=== PATIENT | male | born 1995 | race Caucasian/White ===

== ENCOUNTER 2020-02-05 14:44 | Observation (INO) | payer OTHER ==
[2020-02-05] MEDS ORDERED: SODIUM CHLORIDE 0.9% 500 ML 500 ML IV STA (15:15)
[2020-02-05] MEDS ORDERED: MORPHINE SULFATE 4 MG/ML SYRINGE IV STA (15:15)
--- NOTE | 2020-02-05 15:20 | ED ---
General Adult HPI - General Chief complaint: Abdominal Pain Stated complaint: Back Pain Time Seen by Provider: 02/05/20 14:51 Source: patient, RN notes reviewed, old records reviewed Mode of arrival: wheelchair Limitations: no limitations - History of Present Illness Initial comments: 24-year-old male patient presents ED chief complaint right lower quadrant abdominal pain. Patient reports that began this morning. Patient reports that he has had 2 episodes of nausea and vomiting. Small amount of diarrhea. Denies any fevers. Patient does report that he is having some discomfort in his bilateral paralumbar regions as well. Denies any weakness paresthesias or any other red flag symptoms. 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 Systemic: Pt denies fatigue, fever/chills, rash. Pt denies weakness, night sweats, weight loss. Neuro: Pt denies headache, visual disturbances, syncope or pre-syncope. HEENT: Pt denies ocular discharge or irritation, otalgia, rhinorrhea, pharyngitis or notable lymphadenopathy. Cardiopulmonary: Pt denies chest pain, SOB, heart palpitations, dyspnea on exertion. Abdominal/GI: Pt denies diarrhea. : Pt denies dysuria, burning w/ urination, frequency/urgency. Denies new onset urinary or bowel incontinence. MSK: Pt denies myalgia, loss of strength or function in extremities. Neuro: Pt denies new onset weakness, paresthesias. - Related Data Home Medications Medication Instructions Recorded Confirmed No Known Home Medications 03/05/15 03/05/15 Allergies Allergy/AdvReac Type Severity Reaction Status Date / Time No Known Allergies Allergy Verified 02/05/20 14:48 Review of Systems ROS Statement: Those systems with pertinent positive or pertinent negative responses have been documented in the HPI. ROS Other: All systems not noted in ROS Statement are negative. Past Medical History Past Medical History: No Reported History History of Any Multi-Drug Resistant Organisms: None Reported Past Surgical History: No Surgical Hx Reported Past Psychological History: No Psychological Hx Reported Smoking Status: Current every day smoker Past Alcohol Use History: None Reported Past Drug Use History: Marijuana General Exam Limitations: no limitations Course Vital Signs 02/05/20 02/05/20 14:46 16:04 Temperature 98.1 F Pulse Rate 77 80 Respiratory 18 18 Rate Blood Pressure 135/70 156/59 O2 Sat by Pulse 100 100 Oximetry Medical Decision Making - Medical Decision Making 26. Patient proceeded to complain of abdominal pain rating to his back bila terally. Forcibly began this morning. Patient vital signs are stable, afebrile. Physical exam doesn't display mild amount of abdominal tenderness right lower quadrant periumbilical region some flank tenderness. Laboratory investigations significant for mild leukocytosis of 15, mild AKA which appears to be prerenal in nature, urine does not look grossly infected. Patient is declining any concern for STI whatsoever. CT abdomen and pelvis is consistent with bilateral acute pyelonephritis. Patient is she had been on IV Rocephin. Is having some nausea and vomiting and continued pain. Will be admitted to observation. Case discussed with Dr. Yip - Lab Data Result diagrams: 02/05/20 15:20 02/05/20 15:20 Lab Results 02/05/20 02/05/20 02/05/20 Range/Units 15:20 15:20 15:20 WBC 15.1 H (3.8-10.6) k/uL RBC 4.85 (4.30-5.90) m/uL Hgb 14.3 (13.0-17.5) gm/dL Hct 42.1 (39.0-53.0) % MCV 86.9 (80.0-100.0) fL MCH 29.5 (25.0-35.0) pg MCHC 34.0 (31.0-37.0) g/dL RDW 12.5 (11.5-15.5) % Plt Count 275 (150-450) k/uL Neutrophils % 86 % Lymphocytes % 9 % Monocytes % 4 % Eosinophils % 0 % Basophils % 0 % Neutrophils # 12.9 H (1.3-7.7) k/uL Lymphocytes # 1.3 (1.0-4.8) k/uL Monocytes # 0.6 (0-1.0) k/uL Eosinophils # 0.1 (0-0.7) k/uL Basophils # 0.1 (0-0.2) k/uL Sodium 138 (137-145) mmol/L Potassium 3.7 (3.5-5.1) mmol/L Chloride 106 (98-107) mmol/L Carbon Dioxide 20 L (22-30) mmol/L Anion Gap 12 mmol/L BUN 21 H (9-20) mg/dL Creatinine 1.77 H (0.66-1.25) mg/dL Est GFR (CKD-EPI)AfAm 60 (>60 ml/min/1.73 sqM) Est GFR (CKD-EPI)NonAf 52 (>60 ml/min/1.73 sqM) Glucose 106 H (74-99) mg/dL Plasma Lactic Acid Dominguez (0.7-2.0) mmol/L Calcium 10.4 H (8.4-10.2) mg/dL Total Bilirubin 1.1 (0.2-1.3) mg/dL AST 25 (17-59) U/L ALT 16 (4-49) U/L Alkaline Phosphatase 88 (38-126) U/L Total Protein 7.0 (6.3-8.2) g/dL Albumin 4.6 (3.5-5.0) g/dL Lipase 59 (23-300) U/L Urine Color Light Yellow Urine Appearance Clear (Clear) Urine pH 5.5 (5.0-8.0) Ur Specific [place] 1.009 (1.001-1.035) Urine Protein Trace H (Negative) Urine Glucose (UA) Negative (Negative) Urine Ketones Negative (Negative) Urine Blood Trace H (Negative) Urine Nitrite Negative (Negative) Urine Bilirubin Negative (Negative) Urine Urobilinogen <2.0 (<2.0) mg/dL Ur Leukocyte Esterase Negative (Negative) Urine RBC 2 (0-5) /hpf Urine WBC 1 (0-5) /hpf Ur Squamous Epith Cells <1 (0-4) /hpf Urine Mucus Rare H (None) /hpf 02/05/20 Range/Units 15:20 WBC (3.8-10.6) k/uL RBC (4.30-5.90) m/uL Hgb (13.0-17.5) gm/dL Hct (39.0-53.0) % MCV (80.0-100.0) fL MCH (25.0-35.0) pg MCHC (31.0-37.0) g/dL RDW (11.5-15.5) % Plt Count (150-450) k/uL Neutrophils % % Lymphocytes % % Monocytes % % Eosinophils % % Basophils % % Neutrophils # (1.3-7.7) k/uL Lymphocytes # (1.0-4.8) k/uL Monocytes # (0-1.0) k/uL Eosinophils # (0-0.7) k/uL Basophils # (0-0.2) k/uL Sodium (137-145) mmol/L Potassium (3.5-5.1) mmol/L Chloride (98-107) mmol/L Carbon Dioxide (22-30) mmol/L Anion Gap mmol/L BUN (9-20) mg/dL Creatinine (0.66-1.25) mg/dL Est GFR (CKD-EPI)AfAm (>60 ml/min/1.73 sqM) Est GFR (CKD-EPI)NonAf (>60 ml/min/1.73 sqM) Glucose (74-99) mg/dL Plasma Lactic Acid Dominguez 1.6 (0.7-2.0) mmol/L Calcium (8.4-10.2) mg/dL Total Bilirubin (0.2-1.3) mg/dL AST (17-59) U/L ALT (4-49) U/L Alkaline Phosphatase (38-126) U/L Total Protein (6.3-8.2) g/dL Albumin (3.5-5.0) g/dL Lipase (23-300) U/L Urine Color Urine Appearance (Clear) Urine pH (5.0-8.0) Ur Specific [place] (1.001-1.035) Urine Protein (Negative) Urine Glucose (UA) (Negative) Urine Ketones (Negative) Urine Blood (Negative) Urine Nitrite (Negative) Urine Bilirubin (Negative) Urine Urobilinogen (<2.0) mg/dL Ur Leukocyte Esterase (Negative) Urine RBC (0-5) /hpf Urine WBC (0-5) /hpf Ur Squamous Epith Cells (0-4) /hpf Urine Mucus (None) /hpf Disposition Clinical Impression: Pyelonephritis, GEORGES (acute kidney injury) Disposition: ADMITTED IP TO THIS [facility] Condition: Serious Is patient prescribed a controlled substance at d/c from ED?: No Referrals: None,Stated [Primary Care Provider] - 1-2 days
[2020-02-05 15:33] LABS: Basophils # (A) 0.1 k/uL (0-0.2); Basophils % (A) 0 %; Eosinophils # (A) 0.1 k/uL (0-0.7); Eosinophils % (A) 0 %; HCT 42.1 % (39.0-53.0); HGB 14.3 gm/dL (13.0-17.5); Lymphocytes # (A) 1.3 k/uL (1.0-4.8); Lymphocytes % (A) 9 %; MCH 29.5 pg (25.0-35.0); MCV 86.9 fL (80.0-100.0); Mean Platelet Volume 7.3; Monocytes # (A) 0.6 k/uL (0-1.0); Monocytes % (A) 4 %; Neutrophils # (A) 12.9 k/uL (1.3-7.7); Neutrophils % (A) 86 %; Platelet Count 275 k/uL (150-450); RBC 4.85 m/uL (4.30-5.90); RDW 12.5 % (11.5-15.5); WBC 15.1 k/uL (3.8-10.6)
[2020-02-05 15:43] LABS: Appearance,Urine Clear (Clear); Bilirubin,Urine Negative (Negative); Blood,Urine Trace (Negative); Color,Urine Light Yellow; Glucose,Urine (UA) Negative (Negative); Ketones,Urine Negative (Negative); Leukocyte Esterase,Urine Negative (Negative); Mucus,Urine Rare /hpf; Nitrite,Urine Negative (Negative); PH, Urine 5.5 (5.0-8.0); Protein,Urine Trace (Negative); RBC,Urine 2 /hpf (0-5); Specific Gravity,Urine 1.009 (1.001-1.035); Squamous Epithelial Cell,Urine <1 /hpf (0-4); Urobilinogen,Urine <2.0 mg/dL (<2.0); WBC,Urine 1 /hpf (0-5)
[2020-02-05 15:46] LABS: Albumin 4.6 g/dL (3.5-5.0); Calcium 10.4 mg/dL (8.4-10.2); Potassium 3.7 mmol/L (3.5-5.1); Total Bilirubin 1.1 mg/dL (0.2-1.3)
[2020-02-05] MEDS ORDERED: SODIUM CHLORIDE 0.9% 1,000 ML IV ONE (15:50)
[2020-02-05] MEDS ORDERED: HYDROmorphone 0.5 MG/0.5 ML SYRINGE IVP STA (15:57)
--- NOTE | 2020-02-05 16:09 | CT ---
EXAMINATION TYPE: CT abdomen pelvis w con DATE OF EXAM: 02/05/2020 COMPARISON: None HISTORY: Abdominal and back pain. CT DLP: 582.5 mGycm Automated exposure control for dose reduction was used. CONTRAST: Performed with IV Contrast, patient injected with 100 mL of Isovue 300. Lung bases are clear. There is no pleural effusion. Heart size is normal. There is no pericardial eff usion. Stomach liver spleen pancreas gallbladder appear normal. Bile ducts are not dilated. There is no adrenal mass. There is heterogeneous enhancement of the renal cortex of both kidneys. Del ayed images also show persistent areas of decreased cortical contrast enhancement. There is no hydron ephrosis. There is no retroperitoneal adenopathy. Bladder distends smoothly. Bladder is almost empty. There is no inguinal hernia. There is no free fluid in the pelvis. There is no evidence of pelvic ma ss. There is no mesenteric edema. There is no ascites or free air. There is no evidence of bowel obstruct ion. Appendix is posterior and appears normal. Lumbar vertebra have normal alignment. Disc spaces are fairly normal. Posterior elements are intact. There is no compression fracture. Bony pelvis is intact. Hip joints appear normal. IMPRESSION: Heterogeneous cortical enhancement of the kidneys that is suggestive of bilateral acute pyelonephriti s. Normal appendix. No renal obstruction.
[2020-02-05] MEDS ORDERED: ONDANSETRON 4 MG/2 ML VIAL IVP STA (16:33)
[2020-02-05] MEDS ORDERED: MORPHINE SULFATE 4 MG/ML SYRINGE IV PRN (17:24)
[2020-02-05] MEDS ORDERED: NALOXONE 0.4 MG/ML 1 ML VIAL IV PRN (17:24)
[2020-02-05] MEDS ORDERED: cefTRIAXone IN SWFI 1,000 MG/10 ML SYRINGE IVP STA (17:29)
[2020-02-05] MEDS: SODIUM CHLORIDE 0.9% 1,000 ML IV SCH (17:48)
[2020-02-05] MEDS ORDERED: ONDANSETRON 4 MG/2 ML VIAL IVP PRN (18:39)
[2020-02-05] MEDS: NICOTINE 21MG/24HR PATCH TRANSDERM SCH (20:23)
[2020-02-06] MEDS: SODIUM CHLORIDE 0.9% 1,000 ML IV SCH ×5 (01:35→23:12)
[2020-02-06 06:23] LABS: Basophils % (A) 0 %; Eosinophils # (A) 0.1 k/uL (0-0.7); Eosinophils % (A) 1 %; HCT 38.9 % (39.0-53.0); Lymphocytes # (A) 1.1 k/uL (1.0-4.8); Lymphocytes % (A) 10 %; MCH 29.8 pg (25.0-35.0); MCHC 33.5 g/dL (31.0-37.0); Mean Platelet Volume 7.4; Monocytes # (A) 0.6 k/uL (0-1.0); Monocytes % (A) 5 %; Neutrophils # (A) 8.6 k/uL (1.3-7.7); Neutrophils % (A) 82 %; Platelet Count 236 k/uL (150-450); RBC 4.38 m/uL (4.30-5.90); RDW 12.7 % (11.5-15.5); WBC 10.5 k/uL (3.8-10.6)
[2020-02-06 06:41] LABS: Albumin 3.3 g/dL (3.5-5.0); Calcium 8.7 mg/dL (8.4-10.2); Potassium 4.6 mmol/L (3.5-5.1); Total Bilirubin 1.1 mg/dL (0.2-1.3); Total Protein 5.5 g/dL (6.3-8.2)
[2020-02-06] MEDS: NICOTINE 21MG/24HR PATCH TRANSDERM SCH (07:50)
[2020-02-06] MEDS: ACETAMINOPHEN TAB 325 MG TAB PO PRN ×2 (10:51→17:59)
--- NOTE | 2020-02-06 12:51 | P.HPIM ---
History of Present Illness 24-year-old male came in with complaints of midabdominal pain circumferential along with back pain without any weakness or tingling numbness in the legs. Patient denied any fever chills dysuria. Patient evidently had 2 episodes of nausea. Patient had a computed tomography scan of the abdomen which which was read as pyelonephritis but bilateral. Patient's abdominal pain is better but still has mild back pain which is better with Tylenol. Computed tomography scan did not show any significant lumbar spine disease. Patient's creatinine was 1.77 and today is 1.70 fairly stable at that level with BUN of 19. Patient denied any fever previous kidney issues of kidney failure in the past. Patient had leukocytosis which improved. Patient was started on Rocephin although urease not impressive for UTI mild proteinuria in the urine with some RBC in the urine. Review of Systems REVIEW OF SYSTEMS: CONSTITUTIONAL: No fever, no malaise, no fatigue. HEENT: No recent visual problems or hearing problems. Denied any sore throat. CARDIOVASCULAR: No chest pain, orthopnea, PND, no palpitations, no syncope. PULMONARY: No shortness of breath, no cough, no hemoptysis. GASTROINTESTINAL: As mentioned in HPI NEUROLOGICAL: No headaches, no weakness, no numbness. HEMATOLOGICAL: Denies any bleeding or petechiae. GENITOURINARY: Denies any burning micturition, frequency, or urgency. MUSCULOSKELETAL/RHEUMATOLOGICAL: Denies any joint pain, swelling, or any muscle pain. ENDOCRINE: Denies any polyuria or polydipsia. The rest of the 14-point review of systems is negative. Past Medical History Past Medical History: Pneumonia, Renal Disease Additional Past Medical History / Comment(s): pylenonephritis 02/05/20 History of Any Multi-Drug Resistant Organisms: None Reported Past Surgical History: No Surgical Hx Reported Past Psychological History: No Psychological Hx Reported Smoking Status: Current every day smoker Past Alcohol Use History: None Reported Past Drug Use History: Marijuana - Past Family History Father Family Medical History: No Reported History Medications and Allergies Home Medications Medication Instructions Recorded Confirmed Type No Known Home Medications 03/05/15 02/05/20 History Allergies Allergy/AdvReac Type Severity Reaction Status Date / Time No Known Allergies Allergy Verified 02/05/20 17:46 Physical Exam Vitals: Vital Signs Temp Pulse Pulse Resp BP BP Pulse Ox 02/06/20 07:48 97.5 F L 68 16 121/71 100 02/06/20 03:00 98.5 F 78 16 114/59 99 02/05/20 23:55 54 L 15 02/05/20 19:29 98.2 F 54 L 15 115/71 99 02/05/20 19:10 54 L 15 02/05/20 18:05 97.7 F 59 L 16 137/81 98 02/05/20 17:57 97.9 F 56 L 18 137/79 98 02/05/20 16:04 80 18 156/59 100 02/05/20 14:46 98.1 F 77 18 135/70 100 Intake and Output 02/05/20 02/06/20 02/06/20 22:59 06:59 14:59 Intake Total 240 2010 Balance 240 2010 Intake: Intake, IV Titration 830 Amount Sodium Chloride 0.9% 1, 780 000 ml @ 130 mls/hr IV . Q7H42M [facility] Rx#:[id number] cefTRIAXone 1 gm In 50 Sodium Chloride 0.9% 50 ml @ 100 mls/hr IVPB Q24HR [facility] Rx#:[id number] Oral 240 1180 Other: Voiding Method Toilet Toilet Toilet # Voids 1 1 Weight 72.575 kg PHYSICAL EXAMINATION: GENERAL: The patient is alert and oriented x3, not in any acute distress. Well developed, well nourished. HEENT: Pupils are round and equally reacting to light. EOMI. No scleral icterus. No conjunctival pallor. Normocephalic, atraumatic. No pharyngeal erythema. No thyromegaly. CARDIOVASCULAR: S1 and S2 present. No murmurs, rubs, or gallops. PULMONARY: Chest is clear to auscultation, no wheezing or crackles. ABDOMEN: Soft, nontender, nondistended, normoactive bowel sounds. No palpable organomegaly. MUSCULOSKELETAL: No joint swelling or deformity. EXTREMITIES: No cyanosis, clubbing, or pedal edema. NEUROLOGICAL: Gross neurological examination did not reveal any focal deficits. SKIN: No rashes. Results CBC & Chem 7: 02/06/20 06:09 02/06/20 06:09 Labs: Abnormal Lab Results - Last 24 Hours (Table) 02/05/20 02/05/20 02/05/20 Range/Units 15:20 15:20 15:20 WBC 15.1 H (3.8-10.6) k/uL Hct (39.0-53.0) % Neutrophils # 12.9 H (1.3-7.7) k/uL Chloride (98-107) mmol/L Carbon Dioxide 20 L (22-30) mmol/L BUN 21 H (9-20) mg/dL Creatinine 1.77 H (0.66-1.25) mg/dL Glucose 106 H (74-99) mg/dL Calcium 10.4 H (8.4-10.2) mg/dL Total Protein (6.3-8.2) g/dL Albumin (3.5-5.0) g/dL Urine Protein Trace H (Negative) Urine Blood Trace H (Negative) Urine Mucus Rare H (None) /hpf 02/06/20 02/06/20 Range/Units 06:09 06:09 WBC (3.8-10.6) k/uL Hct 38.9 L (39.0-53.0) % Neutrophils # 8.6 H (1.3-7.7) k/uL Chloride 110 H (98-107) mmol/L Carbon Dioxide (22-30) mmol/L BUN (9-20) mg/dL Creatinine 1.73 H (0.66-1.25) mg/dL Glucose (74-99) mg/dL Calcium (8.4-10.2) mg/dL Total Protein 5.5 L (6.3-8.2) g/dL Albumin 3.3 L (3.5-5.0) g/dL Urine Protein (Negative) Urine Blood (Negative) Urine Mucus (None) /hpf Microbiology - Last 24 Hours (Table) 02/05/20 20:06 Urine Culture - Preliminary Urine,Voided Thrombosis Risk Factor Assmnt - Choose All That Apply Any of the Below Risk Factors Present?: No Other Risk Factors: No Other congenital or acquired thrombophilia - If yes, enter type in comment: No Thrombosis Risk Factor Assessment Level: Very Low Risk Assessment and Plan Plan: --Renal failure: Unknown whether acute renal failure chronic kidney disease probably will be consulted patient was continued on IV fluids patient does have bilateral hydronephrosis/pyelonephritis because of which I'm consulting urology. Clinically no evidence of sepsis at this time. Patient is also on Rocephin as there was concern of pyelonephritis and the computed tomography scan although UA is not impressive for UTI -Back pain probably muscle spasm patient doesn't have any CVA tenderness. -Leukocytosis reactive -Nicotine abuse: Counseling was provided
--- NOTE | 2020-02-06 12:54 | P.NPCON ---
History of Present Illness - Reason for Consult acute renal failure - History of Present Illness Reason for consultation: Acute kidney injury History of present illness: Patient is a 24-year-old male seen in renal consultation for acute kidney injury. Patient's creatinine was 1.77 on admission and is 1.73 today. Unknown baseline renal function. Patient denies any personal history of kidney disease. Patient presented to the hospital with abdominal pain with radiation to the back that started yesterday. Patient denies any fever or chills. He denies any hematuria or dysuria. No chest pain or shortness of breath. No edema. He underwent CAT scan with IV contrast on February 04 which revealed bilateral acute polynephritis. No hydronephrosis or renal obstruction was noted. He denies regular use of nonsteroidals. No history of diabetes. Blood pressure stable. No recent travel. No cough. Pain is better today. UA not suggestive of urinary tract infection. Vital signs are stable. General: The patient appeared well nourished and normally developed. HEENT: Head exam is unremarkable. Neck is without jugular venous distension. LUNGS: Lungs are clear to auscultation and percussion. Breath sounds decreased. HEART: Rate and Rhythm are regular. First and second heart sounds normal. No mu rmurs, rubs or gallops. ABDOMEN: Soft. Mild generalized tenderness. EXTREMITITES: No clubbing, cyanosis, or edema. Past Medical History Past Medical History: Pneumonia, Renal Disease Additional Past Medical History / Comment(s): pylenonephritis 02/05/20 History of Any Multi-Drug Resistant Organisms: None Reported Past Surgical History: No Surgical Hx Reported Past Psychological History: No Psychological Hx Reported Smoking Status: Current every day smoker Past Alcohol Use History: None Reported Past Drug Use History: Marijuana - Past Family History Father Family Medical History: No Reported History Medications and Allergies Home Medications Medication Instructions Recorded Confirmed Type No Known Home Medications 03/05/15 02/05/20 History Allergies Allergy/AdvReac Type Severity Reaction Status Date / Time No Known Allergies Allergy Verified 02/05/20 17:46 Physical Exam Vitals: Vital Signs Temp Pulse Pulse Resp BP BP Pulse Ox 02/06/20 07:48 97.5 F L 68 16 121/71 100 02/06/20 03:00 98.5 F 78 16 114/59 99 02/05/20 23:55 54 L 15 02/05/20 19:29 98.2 F 54 L 15 115/71 99 02/05/20 19:10 54 L 15 02/05/20 18:05 97.7 F 59 L 16 137/81 98 02/05/20 17:57 97.9 F 56 L 18 137/79 98 02/05/20 16:04 80 18 156/59 100 02/05/20 14:46 98.1 F 77 18 135/70 100 Intake and Output 02/05/20 02/06/20 02/06/20 22:59 06:59 14:59 Intake Total 240 2009 Balance 240 2009 Intake: Intake, IV Titration 830 Amount Sodium Chloride 0.9% 1, 780 000 ml @ 130 mls/hr IV . Q7H42M [facility] Rx#:[id number] cefTRIAXone 1 gm In 50 Sodium Chloride 0.9% 50 ml @ 100 mls/hr IVPB Q24HR [facility] Rx#:[id number] Oral 240 1180 Other: Voiding Method Toilet Toilet Toilet # Voids 1 1 Weight 72.575 kg Results - Lab Results Most recent lab results Calcium 8.7 mg/dL (8.4-10.2) 02/06/20 06:09 02/06/20 06:09 02/06/20 06:09 Assessment and Plan Plan: Assessment: 1. Acute kidney injury mostly prerenal secondary to hypovolemia and poor intake. Also received IV contrast on February 04. Creatinine was 1.77 on admission and is 1.73 today. Trace proteinuria on UA. No evidence of hydronephrosis noted on CAT scan. 2. Bilateral pyelonephritis. However no evidence of UTI on UA. 3. Metabolic acidosis secondary to acute kidney injury. Resolved. Plan: Decrease normal saline to 80 mL an hour. Repeat urinalysis. Follow-up cultures. Check renal ultrasound. Quantify proteinuria. Thank you for the consultation. I will continue to follow the patient with you during his hospital stay.
[2020-02-06 13:17] LABS: Appearance,Urine Clear (Clear); Bilirubin,Urine Negative (Negative); Blood,Urine Negative (Negative); Color,Urine Light Yellow; Glucose,Urine (UA) Negative (Negative); Ketones,Urine 1+ (Negative); Leukocyte Esterase,Urine Negative (Negative); Nitrite,Urine Negative (Negative); Protein,Urine Negative (Negative); Urobilinogen,Urine <2.0 mg/dL (<2.0)
[2020-02-06 13:30] LABS: Protein/Creatinine Ratio,Urine 0.155
--- NOTE | 2020-02-06 15:00 | US ---
EXAMINATION TYPE: US kidneys/renal and bladder DATE OF EXAM: 02/06/2020 COMPARISON: CT abdomen pelvis 02/06/2020 CLINICAL HISTORY: Acute kidney injury EXAM MEASUREMENTS: Right Kidney: 11.1 x 4.9 x 5.3 cm Left Kidney: 11.1 x 5.6 x 5.3 cm Right Kidney: No hydronephrosis or masses seen. No nephrolithiasis. No perinephric fluid collection. Left Kidney: No hydronephrosis or masses seen. No nephrolithiasis. No perinephric fluid collection. Bladder: Normal Bilateral Jets seen: No IMPRESSION: 1. No hydronephrosis bilaterally. 2. Normal urinary bladder.
--- NOTE | 2020-02-06 20:46 | P.GSCN ---
History of Present Illness Consult date: 02/06/20 Reason for Consult: Possible pyelonephritis Requesting physician: Jere Sadler History of present illness: The patient is a 24-year-old male admitted with low back and abdominal pain, which began when he awoke on 02/05/2020. He states that he felt normal the prior day. He presented to the emergency room yesterday, and a computed tomography scan of the abdomen and pelvis was obtained revealing bilateral heterogenous renal cortical enhancement. Contrary to what some notes on the chart have suggested, the computed tomography scan and renal ultrasound (performed today) show no evidence of hydronephrosis. Urinalysis is not consistent with infection. The patient denies any prior history of UTIs or urolithiasis. He denies dysuria and hematuria. He states that his pain is 75% improved. Review of Systems - Constitutional Denies chills, Denies fever - Gastrointestinal Reports nausea, Reports vomiting - Genitourinary Denies dysuria, Denies hematuria, Denies kidney stones Past Medical History Past Medical History: Pneumonia, Renal Disease Additional Past Medical History / Comment(s): pylenonephritis 02/05/20 History of Any Multi-Drug Resistant Organisms: None Reported Past Surgical History: No Surgical Hx Reported Past Psychological History: No Psychological Hx Reported Smoking Status: Current every day smoker Past Alcohol Use History: None Reported Past Drug Use History: Marijuana - Past Family History Father Family Medical History: No Reported History Medications and Allergies Home Medications Medication Instructions Recorded Confirmed Type No Known Home Medications 03/05/15 02/05/20 History Allergies Allergy/AdvReac Type Severity Reaction Status Date / Time No Known Allergies Allergy Verified 02/05/20 17:46 Surgical - Exam Vital Signs Temp Pulse Resp BP Pulse Ox 98.1 F 77 18 135/70 100 02/05/20 14:46 02/05/20 14:46 02/05/20 14:46 02/05/20 14:46 02/05/20 14:46 - General well developed, well nourished, no distress - Respiratory normal respiratory effort - Abdomen Abdomen: soft, tender (Mild left lower quadrant tenderness to palpation. Bilateral mild CVA tenderness.), no masses, no guarding, no rigid, no rebound - Genitourinary normal penis with no external lesions, testicles non-tender - Psychiatric oriented to time, oriented to person, oriented to place, speech is normal, memory intact Results - Labs 02/06/20 06:09 02/06/20 06:09 Abnormal Lab Results - Last 24 Hours (Table) 02/06/20 02/06/20 02/06/20 Range/Units 06:09 06:09 12:45 Hct 38.9 L (39.0-53.0) % Neutrophils # 8.6 H (1.3-7.7) k/uL Chloride 110 H (98-107) mmol/L Creatinine 1.73 H (0.66-1.25) mg/dL Total Protein 5.5 L (6.3-8.2) g/dL Albumin 3.3 L (3.5-5.0) g/dL Urine Ketones 1+ H (Negative) Microbiology - Last 24 Hours (Table) 02/05/20 17:53 Blood Culture - Preliminary Blood No Growth after 24 hours 02/05/20 20:06 Urine Culture - Preliminary Urine,Voided Diabetes panel 02/06/20 Range/Units 06:09 Sodium 138 (137-145) mmol/L Potassium 4.6 (3.5-5.1) mmol/L Chloride 110 H (98-107) mmol/L Carbon Dioxide 23 (22-30) mmol/L BUN 19 (9-20) mg/dL Creatinine 1.73 H (0.66-1.25) mg/dL Glucose 97 (74-99) mg/dL Calcium 8.7 (8.4-10.2) mg/dL AST 23 (17-59) U/L ALT 13 (4-49) U/L Alkaline Phosphatase 61 (38-126) U/L Total Protein 5.5 L (6.3-8.2) g/dL Albumin 3.3 L (3.5-5.0) g/dL Calcium panel 02/06/20 Range/Units 06:09 Calcium 8.7 (8.4-10.2) mg/dL Albumin 3.3 L (3.5-5.0) g/dL Pituitary panel 02/06/20 Range/Units 06:09 Sodium 138 (137-145) mmol/L Potassium 4.6 (3.5-5.1) mmol/L Chloride 110 H (98-107) mmol/L Carbon Dioxide 23 (22-30) mmol/L BUN 19 (9-20) mg/dL Creatinine 1.73 H (0.66-1.25) mg/dL Glucose 97 (74-99) mg/dL Calcium 8.7 (8.4-10.2) mg/dL Adrenal panel 02/06/20 Range/Units 06:09 Sodium 138 (137-145) mmol/L Potassium 4.6 (3.5-5.1) mmol/L Chloride 110 H (98-107) mmol/L Carbon Dioxide 23 (22-30) mmol/L BUN 19 (9-20) mg/dL Creatinine 1.73 H (0.66-1.25) mg/dL Glucose 97 (74-99) mg/dL Calcium 8.7 (8.4-10.2) mg/dL Total Bilirubin 1.1 (0.2-1.3) mg/dL AST 23 (17-59) U/L ALT 13 (4-49) U/L Alkaline Phosphatase 61 (38-126) U/L Total Protein 5.5 L (6.3-8.2) g/dL Albumin 3.3 L (3.5-5.0) g/dL - Imaging CT scan - abdomen: report reviewed, image reviewed US - kidney/bladder: report reviewed Assessment and Plan (1) Pyelonephritis Current Visit: Yes Status: Acute Code(s): N12 - TUBULO-INTERSTITIAL NEPHRITIS, NOT SPCF ACUTE OR CHRONIC SNOMED Code(s): 76326171 Plan: The patient presented with low back and abdominal pain of indeterminate etiology. His symptoms are 75% improved. He has been found to have renal insufficiency, but unfortunately his baseline renal function is unknown. The computed tomography scan shows bilateral heterogenous renal cortical enhancement, but no perinephric stranding. Blood cultures are negative. Urine culture is pending, but urinalysis is unremarkable and I anticipate that the urine culture will be negative. Bilateral acute pyelonephritis as uncommon, and I do not believe that this is the appropriate diagnosis. I have no explanation for the computed tomography scan findings. If his pain continues to improve and his renal function normalizes, further evaluation is likely unwarranted. However, if his condition fails to improve, I would suggest consideration of other potential diagnoses including vascular etiologies. Time with Patient: Greater than 30
--- NOTE | 2020-02-06 22:35 | P.CONS ---
History of Present Illness - Reason for Consult Consult date: 02/06/20 pyelonephritis Requesting physician: Rancho Long - Chief Complaint Abdominal pain x one day - History of Present Illness Patient is a 24-year-old male otherwise healthy presented to the ER with chief complaints of abdominal pain the patient abdominal pain has been across the middle abdominal area and radiating to the back area patient described the pain to be sharp, with intensity of almost 10 out of 10 in severity with associated nausea but no vomiting denies having any diarrhea or any constipation the patient denies having any burning or frequency of urine no difficult urination denies high-grade fever with asymptomatic the patient was evaluated by the ER physician on arrival to the ER the patient has been afebrile he did have elevated white count of 15,000 and did have elevated creatinine 1.77 patient did have a normal UA did have CT of abdominal pelvis that was read as bilateral pyelonephritis patient has been started on Rocephin 1 g daily patient white count has normalized as of this morning infectious disease was consulted for further management of antibiotic therapy, patient currently denies having any fever or chills denies having any headache or URI symptoms, no chest pain shortness of breath or cough Review of Systems Positive point has been mentioned in the HPI rest of the systems are negative Past Medical History Past Medical History: Pneumonia, Renal Disease Additional Past Medical History / Comment(s): pylenonephritis 02/05/20 History of Any Multi-Drug Resistant Organisms: None Reported Past Surgical History: No Surgical Hx Reported Past Psychological History: No Psychological Hx Reported Smoking Status: Current every day smoker Past Alcohol Use History: None Reported Past Drug Use History: Marijuana - Past Family History Father Family Medical History: No Reported History Medications and Allergies Home Medications Medication Instructions Recorded Confirmed Type No Known Home Medications 03/05/15 02/05/20 History Allergies Allergy/AdvReac Type Severity Reaction Status Date / Time No Known Allergies Allergy Verified 02/05/20 17:46 Physical Exam Vitals: Vital Signs Temp Pulse Pulse Resp BP BP Pulse Ox 02/06/20 07:48 97.5 F L 68 16 121/71 100 02/06/20 03:00 98.5 F 78 16 114/59 99 02/05/20 23:55 54 L 15 02/05/20 19:29 98.2 F 54 L 15 115/71 99 02/05/20 19:10 54 L 15 02/05/20 18:05 97.7 F 59 L 16 137/81 98 02/05/20 17:57 97.9 F 56 L 18 137/79 98 02/05/20 16:04 80 18 156/59 100 02/05/20 14:46 98.1 F 77 18 135/70 100 Intake and Output 02/05/20 02/06/20 02/06/20 22:59 06:59 14:59 Intake Total 240 2009 Balance 240 2009 Intake: Intake, IV Titration 830 Amount Sodium Chloride 0.9% 1, 780 000 ml @ 130 mls/hr IV . Q7H42M EMILIANO Rx#:[id number] cefTRIAXone 1 gm In 50 Sodium Chloride 0.9% 50 ml @ 100 mls/hr IVPB Q24HR EMILIANO Rx#:[id number] Oral 240 1180 Other: Voiding Method Toilet Toilet Toilet # Voids 1 1 Weight 72.575 kg GENERAL DESCRIPTION: Middle-aged male lying in bed, no distress. No tachypnea or accessory muscle of respiration use. HEENT: Shows Pallor , no scleral icterus. Oral mucous membrane is dry. No pharyngeal erythema or thrush NECK: Trachea central, no thyromegaly. LUNGS: Unlabored breathing. Clear to auscultation anteriorly. No wheeze or crackle. HEART: S1, S2, regular rate and rhythm. No loud murmur ABDOMEN: Soft, no tenderness , guarding or rigidity, no organomegaly EXTREMITIES: No edema of feet. SKIN: No rash, no masses palpable. NEUROLOGICAL: The patient is awake, alert, oriented x3, mood and affect normal. Results CBC & Chem 7: 02/06/20 06:09 02/06/20 06:09 Labs: Abnormal Lab Results - Last 24 Hours (Table) 02/05/20 02/05/20 02/05/20 Range/Units 15:20 15:20 15: WBC 15.1 H (3.8-10.6) k/uL Hct (39.0-53.0) % Neutrophils # 12.9 H (1.3-7.7) k/uL Chloride (98-107) mmol/L Carbon Dioxide 20 L (22-30) mmol/L BUN 21 H (9-20) mg/dL Creatinine 1.77 H (0.66-1.25) mg/dL Glucose 106 H (74-99) mg/dL Calcium 10.4 H (8.4-10.2) mg/dL Total Protein (6.3-8.2) g/dL Albumin (3.5-5.0) g/dL Urine Protein Trace H (Negative) Urine Ketones (Negative) Urine Blood Trace H (Negative) Urine Mucus Rare H (None) /hpf 02/06/20 02/06/20 02/06/20 Range/Units 06:09 06:09 12:45 WBC (3.8-10.6) k/uL Hct 38.9 L (39.0-53.0) % Neutrophils # 8.6 H (1.3-7.7) k/uL Chloride 110 H (98-107) mmol/L Carbon Dioxide (22-30) mmol/L BUN (9-20) mg/dL Creatinine 1.73 H (0.66-1.25) mg/dL Glucose (74-99) mg/dL Calcium (8.4-10.2) mg/dL Total Protein 5.5 L (6.3-8.2) g/dL Albumin 3.3 L (3.5-5.0) g/dL Urine Protein (Negative) Urine Ketones 1+ H (Negative) Urine Blood (Negative) Urine Mucus (None) /hpf Microbiology - Last 24 Hours (Table) 02/05/20 20:06 Urine Culture - Preliminary Urine,Voided Assessment and Plan Assessment: 1-patient with leukocytosis in this patient presented to the hospital with abdominal pain with some radiation to the back in this patient who did not have any fever patient UA is normal, CT abdominal pelvis was suggestive of bilateral pyelonephritis which is very uncommon condition especially in view of a normal UA and the patient didn't have any urinary symptoms however the patient white count responded to Rocephin and currently do not have any other obvious focus of infection (1) Leukocytosis Current Visit: Yes Status: Acute Code(s): D72.829 - ELEVATED WHITE BLOOD CELL COUNT, UNSPECIFIED SNOMED Code(s): 031541046 Plan: 1- we will repeat UA and a culture 2- continue with the Rocephin 1 g daily while waiting for the cultures to finalize 3- gentle IV fluid We will follow on clinical condition and cultures to further adjust medication if needed Thank you for this consultation will follow this patient with you Time with Patient: Greater than 30
[2020-02-07] MEDS: SODIUM CHLORIDE 0.9% 1,000 ML IV SCH (01:30)
[2020-02-07] MEDS: ACETAMINOPHEN TAB 325 MG TAB PO PRN (07:43)
[2020-02-07] MEDS: NICOTINE 21MG/24HR PATCH TRANSDERM SCH (07:44)
[2020-02-07 07:52] VITALS: BP 137/65; PULSE 66; RESP 16; TEMP 97.6
[2020-02-07] MEDS ORDERED: NALOXONE 0.4 MG/ML 1 ML VIAL IV PRN (08:53)
[2020-02-07] MEDS ORDERED: ONDANSETRON 4 MG/2 ML VIAL IVP PRN (08:54)
[2020-02-07 08:57] LABS: Basophils % (A) 0 %; Eosinophils % (A) 0 %; HCT 37.8 % (39.0-53.0); HGB 12.6 gm/dL (13.0-17.5); Lymphocytes # (A) 0.9 k/uL (1.0-4.8); Lymphocytes % (A) 11 %; MCH 29.3 pg (25.0-35.0); MCHC 33.2 g/dL (31.0-37.0); MCV 88.1 fL (80.0-100.0); Mean Platelet Volume 8.1; Monocytes # (A) 0.4 k/uL (0-1.0); Monocytes % (A) 4 %; Neutrophils % (A) 84 %; Platelet Count 218 k/uL (150-450); RBC 4.29 m/uL (4.30-5.90); RDW 12.5 % (11.5-15.5); WBC 8.3 k/uL (3.8-10.6)
[2020-02-07 09:09] LABS: African American GFR (CKD) >90 (>60 ml/min/1.73 sqM); Anion Gap 4 mmol/L; Blood Urea Nitrogen 16 mg/dL (9-20); C Reactive Protein 23.1 mg/L (<10.0); Calcium 9.1 mg/dL (8.4-10.2); Carbon Dioxide 24 mmol/L (22-30); Chloride 108 mmol/L (98-107); Glucose 112 mg/dL (74-99); Non-African American GFR(CKD) 85 (>60 ml/min/1.73 sqM); Potassium 3.8 mmol/L (3.5-5.1); Sodium 136 mmol/L (137-145)
--- NOTE | 2020-02-07 09:28 | P.PN ---
Subjective Patient is seen in follow for acute kidney injury. Renal function better. No abdominal pain. Oral intake good. Good urine output. No hematuria or dysuria. Vital signs are stable. General: The patient appeared well nourished and normally developed. HEENT: Head exam is unremarkable. Neck is without jugular venous distension. LUNGS: Lungs are clear to auscultation and percussion. Breath sounds decreased. HEART: Rate and Rhythm are regular. First and second heart sounds normal. No murmurs, rubs or gallops. ABDOMEN: Soft, nontender. EXTREMITITES: No clubbing, cyanosis, or edema. Objective - Vital Signs Vital signs: Vital Signs Temp 97.6 F 02/07/20 07:51 Pulse 66 02/07/20 07:51 Resp 16 02/07/20 07:51 BP 137/65 02/07/20 07:51 Pulse Ox 100 02/07/20 07:51 Intake & Output 02/06/20 02/07/20 02/07/20 18:59 06:59 18:59 Intake Total 4580 640 Balance 4580 640 Intake: Intake, IV Titration 1900 640 Amount Sodium Chloride 0.9% 1, 1430 000 ml @ 130 mls/hr IV . Q7H42M EMILIANO Rx#:[id number] Sodium Chloride 0.9% 1, 320 640 000 ml @ 80 mls/hr IV . [id number] EMILIANO Rx#:[id number] cefTRIAXone 1 gm In 150 Sodium Chloride 0.9% 50 ml @ 100 mls/hr IVPB Q24HR EMILIANO Rx#:[id number] Oral 2680 Other: Voiding Method Toilet Toilet # Voids 6 2 1 - Labs CBC & Chem 7: 02/07/20 08:45 02/07/20 08:45 Labs: Abnormal Lab Results - Last 24 Hours (Table) 02/06/20 02/07/20 02/07/20 Range/Units 12:45 08:45 08:45 RBC 4.29 L (4.30-5.90) m/uL Hgb 12.6 L (13.0-17.5) gm/dL Hct 37.8 L (39.0-53.0) % Lymphocytes # 0.9 L (1.0-4.8) k/uL Sodium 136 L (137-145) mmol/L Chloride 108 H (98-107) mmol/L Glucose 112 H (74-99) mg/dL C-Reactive Protein 23.1 H (<10.0) mg/L Urine Ketones 1+ H (Negative) Microbiology - Last 24 Hours (Table) 02/05/20 17:53 Blood Culture - Preliminary Blood No Growth after 24 hours 02/05/20 20:06 Urine Culture - Preliminary Urine,Voided Assessment and Plan Plan: Assessment: 1. Acute kidney injury mostly prerenal secondary to hypovolemia and poor intake. Also received IV contrast on February 04. Creatinine was 1.77 on admission and is 1.18 today. No proteinuria. No evidence of hydronephrosis not ed on CAT scan. 2. ?Bilateral pyelonephritis. However no evidence of UTI on UA. 3. Metabolic acidosis secondary to acute kidney injury. Resolved. Plan: Maintain normal saline 80 mL an hour. Follow-up cultures. Stable for discharge home from nephrology standpoint.
--- NOTE | 2020-02-07 13:54 | PN ---
PROGRESS NOTE DATE OF SERVICE: 02/07/2020 REASON FOR FOLLOWUP: Leukocytosis and a question of pyelonephritis. INTERVAL HISTORY: The patient was seen on rounds this morning. The patient has been afebrile. The patient's abdominal pain has resolved. Denies any nausea, vomiting. No chest pain, shortness of breath. No cough and no diarrhea. PHYSICAL EXAMINATION: Blood pressure 137/65 with a pulse of 66, temperature 97.9, he is 100% on room air. General description is a young male up in the bed in no distress. RESPIRATORY SYSTEM: Unlabored breathing, clear to auscultation anteriorly. HEART: S1, S2. Regular rate and rhythm. ABDOMEN: Soft, no tenderness. LABS: Hemoglobin is 12.1, white count 8.3. The BUN of 16, creatinine 1.18, repeat urine is negative, culture negative. DIAGNOSTIC IMPRESSION AND PLAN: Patient admitted to the hospital with abdominal pain with question of possible pyelonephritis, which is unusual. The patient's urine culture has been negative. However, the patient clinically responding to the IV fluid and antibiotics, may need a short course of oral Ceftin on discharge. Continue supportive care. MMODL / IJN: [id number] /
--- NOTE | 2020-02-07 14:02 | P.DS ---
Providers Date of admission: 02/05/20 17:25 Attending physician: Rancho Long MD Consults: 02/05/20 18:39 Consult Physician Routine Consulting Provider: Ravi Adams Consult Reason/Comments: [place]es, pylenophritis Do you want consulting provider notified?: Yes 02/06/20 11:55 Consult Physician Routine Consulting Provider: Jose Johnson Consult Reason/Comments: [place] Do you want consulting provider notified?: Yes 02/06/20 11:56 Consult Physician Routine Consulting Provider: Tristan Silveira Consult Reason/Comments: Bilatral Hydronephrosis Do you want consulting provider notified?: Yes Primary care physician: Stated None Hospital Course: 24-year-old male came in with complaints of midabdominal pain circumferential along with back pain without any weakness or tingling numbness in the legs. P atient denied any fever chills dysuria. Patient evidently had 2 episodes of nausea. Patient had a computed tomography scan of the abdomen which which was read as pyelonephritis but bilateral. Patient's abdominal pain is better but still has mild back pain which is better with Tylenol. Computed tomography scan did not show any significant lumbar spine disease. Patient's creatinine was 1.77 and today is 1.70 fairly stable at that level with BUN of 19. Patient denied any fever previous kidney issues of kidney failure in the past. Patient had leukocytosis which improved. Patient was started on Rocephin although urease not impressive for UTI mild proteinuria in the urine with some RBC in the urine. 02/07/2020 Patient's serum creatinine improved to 1.1 patient appears to have prerenal a zotemia which improved at this time. Patient was evaluated by urology as well and I do not believe patient has pyelonephritis or hydronephrosis. Patient is overall clinically doing well no evidence of urinary tract infection or sepsis patient pain was probably musculoskeletal from muscle spasm in the back completely resolved at this time. Patient is being discharged today. PHYSICAL EXAMINATION: GENERAL: The patient is alert and oriented x3, not in any acute distress. Well developed, well nourished. HEENT: Pupils are round and equally reacting to light. EOMI. No scleral icterus. No conjunctival pallor. Normocephalic, atraumatic. No pharyngeal erythema. No thyromegaly. CARDIOVASCULAR: S1 and S2 present. No murmurs, rubs, or gallops. PULMONARY: Chest is clear to auscultation, no wheezing or crackles. ABDOMEN: Soft, nontender, nondistended, normoactive bowel sounds. No palpable organomegaly. MUSCULOSKELETAL: No joint swelling or deformity. EXTREMITIES: No cyanosis, clubbing, or pedal edema. NEUROLOGICAL: Gross neurological examination did not reveal any focal deficits. SKIN: No rashes. -Mild acute renal failure prerenal azotemia from intravascular depletion dehydration improved with IV fluids -Back pain -Ruled out UTI or pyelonephritis Patient Condition at Discharge: Serious Plan - Discharge Summary Discharge Rx Participant: No New Discharge Prescriptions: No Action No Known Home Medications Discharge Medication List No Known Home Medications 03/05/15 [History] Follow up Appointment(s)/Referral(s): Christiane Cooper MD [REFERRING] - 1 Week Patient Instructions/Handouts: Acute Kidney Injury (DC) Discharge Disposition: HOME SELF-CARE
== END 2020-02-07 11:39 | disposition home or self-care (01) ==
LOC: EC 14:44 → 1SOBS 17:25
PROVIDERS: ADMIT Internal Medicine; ATTEND Internal Medicine
DX: N17.9 Acute kidney failure, unspecified (principal); E86.9 Volume depletion, unspecified; E86.0 Dehydration; E87.2 Acidosis; E86.1 Hypovolemia; D72.829 Elevated white blood cell count, unspecified; M54.5 Low back pain; R19.7 Diarrhea, unspecified; R10.31 Right lower quadrant pain; R10.33 Periumbilical pain; F17.200 Nicotine dependence, unspecified, uncomplicated; Z87.01 Personal history of pneumonia (recurrent)
CPT/HCPCS: 96361 ×2; 96366 ×2; 96365; 96375; 99285; 36415; 82570; 80053 ×2; 80048; 84156; 83605 ×2; 83690; 85025 ×3; 86140; 81003; 81001; 87040; 87086; 76770; 74177; G0378 ×3; S4990 ×3; J2270; J2405; J0696 ×3; J1170; Q9967

== ENCOUNTER 2022-11-11 15:03 | Emergency (ER) | payer OTHER ==
[2022-11-11 15:47] VITALS: TEMP 100.8
--- NOTE | 2022-11-11 18:07 | ED ---
General Adult HPI - General Source: EMS, RN notes reviewed Mode of arrival: EMS Limitations: no limitations <Tatiana Llanes - Last Filed: 11/11/22 18:06> - History of Present Illness -: days(s) Location: chest Radiation: non-radiation Quality: dull Consistency: constant Improves with: none Worsens with: movement Associated Symptoms: headaches, other (Myalgia) Treatments Prior to Arrival: none <Maxi Pham - Last Filed: 11/25/22 06:57> - General Chief complaint: Dizziness Stated complaint: Abd pain,dizziness - History of Present Illness Initial comments: 26-year-old male with past medical history significant for recent strep infection presents the emergency department with a chief complaint of chest pain. He reports his chest pain started yesterday morning at 11:00. He describes as a dull ache. It is worse with movement. He denies having rest d enies provocation. Denies shortness of breath. He is complaining of accompanying symptoms of headache, generalized body aches (Tatiana Llanes) This patient is 26-year-old man who presents to have evaluation for approximately 2 days now of a constellation of symptoms including not feeling well, headaches, body aches, and bilateral aching chest pain. Patient states that he had been to the clinic earlier and had been diagnosed with strep. He has not noted a productive cough, dyspnea, palpitations, lightheadedness, nausea or vomiting (Maxi Pham) - Related Data Home Medications Medication Instructions Recorded Confirmed Amoxicillin 500 mg PO BID 11/11/22 11/11/22 Allergies Allergy/AdvReac Type Severity Reaction Status Date / Time No Known Allergies Allergy Verified 11/11/22 22:27 Review of Systems ROS Other: All systems not noted in ROS Statement are negative. <Tatiana Llanes - Last Filed: 11/11/22 18:06> ROS Other: All systems not noted in ROS Statement are negative. Constitutional: Reports: weakness ENT: Reports: throat pain Respiratory: Reports: cough. Denies: dyspnea, wheezes Cardiovascular: Reports: chest pain. Denies: palpitations, orthopnea, edema, syncope Gastrointestinal: Denies: abdominal pain, nausea, vomiting, diarrhea Genitourinary: Denies: dysuria, hematuria Musculoskeletal: Reports: myalgia. Denies: back pain Skin: Denies: rash Neurological: Reports: headache. Denies: weakness, numbness, confusion <VeroMaxi - Last Filed: 11/25/22 06:57> ROS Statement: Those systems with pertinent positive or pertinent negative responses have been documented in the HPI. Past Medical History Past Medical History: Pneumonia, Renal Disease Additional Past Medical History / Comment(s): pylenonephritis 02/05/20 History of Any Multi-Drug Resistant Organisms: None Reported Past Surgical History: No Surgical Hx Reported Past Psychological History: No Psychological Hx Reported Smoking Status: Vaper Past Alcohol Use History: None Reported, Rare Past Drug Use History: Marijuana - Past Family History Father Family Medical History: No Reported History <Tatiana Llanes - Last Filed: 11/11/22 18:06> General Exam Limitations: no limitations <Tatiana Llanes - Last Filed: 11/11/22 18:06> General appearance: alert, in no apparent distress Head exam: Present: atraumatic, normocephalic Eye exam: Present: normal appearance. Absent: scleral icterus, conjunctival injection Neck exam: Present: normal inspection, full ROM, lymphadenopathy. Absent: tenderness, meningismus Respiratory exam: Present: normal lung sounds bilaterally. Absent: respiratory distress, wheezes, rales, rhonchi, stridor Cardiovascular Exam: Present: regular rate, normal rhythm, normal heart sounds. Absent: systolic murmur, diastolic murmur, rubs, gallop GI/Abdominal exam: Present: soft. Absent: distended, tenderness, guarding, rebound, rigid, mass Extremities exam: Present: normal inspection, normal capillary refill. Absent: pedal edema, calf tenderness Back exam: Present: normal inspection. Absent: CVA tenderness (R), CVA ten derness (L) Neurological exam: Present: alert Skin exam: Present: warm, dry, intact, normal color. Absent: rash <VeroMaxi - Last Filed: 11/25/22 06:57> - General Exam Comments Initial Comments: Visual Physical Exam Vital signs reviewed General: Well-appearing, nontoxic, no acute distress. Head: Normocephalic, atraumatic Eyes: PERRLA, EOMI ENT: Airway patent Chest: Nonlabored breathing Skin: No visual rash, normal skin tone Neuro: Alert and oriented 3 Musculoskeletal: No gross abnormalities (Tatiana Llanes) Course Vital Signs 11/11/22 11/11/22 11/11/22 15:43 21:31 22:22 Temperature 100.8 F H Pulse Rate 101 H 84 68 Respiratory 18 19 15 Rate Blood Pressure 114/64 121/63 129/82 O2 Sat by Pulse 99 100 98 Oximetry 11/11/22 23:51 Temperature Pulse Rate 74 Respiratory 16 Rate Blood Pressure 107/61 O2 Sat by Pulse 98 Oximetry EKG Findings - EKG Results: EKG: interpreted by ERMD, sinus rhythm (Rate 82 bpm), normal QRS - Blocks, [place], Hypertrophy, ST Abn: QRS axis and voltage: right axis deviation (+90 to +180) (Borderline right axis) <Maxi Pham - Last Filed: 11/25/22 06:57> Medical Decision Making - Lab Data Result diagrams: 11/11/22 19:47 11/11/22 19:47 <Maxi Pham - Last Filed: 11/25/22 06:57> - Medical Decision Making The patient had 2 view chest x-ray which I interpreted as being negative for acute infiltrates, pneumothorax, or congestive heart failure Was pt. sent in by a medical professional or institution (, PA, SUPERVISOR [employer]CTION, urgent care, hospital, or long-term...) When possible be specific @ -[No] Did you speak to anyone other than the patient for history (EMS, parent, family, police, friend...)? What history was obtained from this source @ -[No] Did you review nursing and triage notes (agree or disagree)? Why? @ -[I reviewed and agree with nursing and triage notes] Were old charts reviewed (outside hosp., previous admission, EMS record, old EKG, old radiological studies, urgent care reports/EKG's, long-term records)? Report findings @ -[No old charts were reviewed] Differential Diagnosis (chest pain, altered mental status, abdominal pain women, abdominal pain men, vaginal bleeding, weakness, fever, dyspnea, syncope, headache, dizziness, GI bleed, back pain, seizure, CVA, palpatations, mental health, musculoskeletal)? @ -[Differential Chest Pain: Stable Angina, Unstable Angina, STEMI, NSTEMI Aortic Dissection, Pneumothorax, Musculoskeletal, Esophageal Spasm GERD, Cholecystitis, Pancreatitis, Zoster, this is not meant to be an all-inclusive list. Differential Fever: Pneumonia, viral URI, endocarditis, myocarditis, pericarditis, otitis, sinusitis, peritonsillar Abscess, retropharyngeal Abscess, epiglottitis, peritonitis, appendicitis, Cristela cystitis, diverticulitis, hepatitis, colitis, UTI, PID, pyelonephritis, prostatitis, epididymitis, meningitis, encephalitis, pulmonary embolism, CVA, thyroid storm, pancreatitis, adrenal crisis, cavernous sinus thrombosis, this is not meant to be an all-inclusive list. EKG interpreted by me (3pts min.). @ -[As above] X-rays interpreted by me (1pt min.). @ -[As above CT interpreted by me (1pt min.). @ -[None done] U/S interpreted by me (1pt. min.). @ -[None done] What testing was considered but not performed or refused? (CT, X-rays, U/S, labs)? Why? @ -[None] What meds were considered but not given or refused? Why? @ -[None] Did you discuss the management of the patient with other professionals (professionals i.e. , PA, [employer], lab, RT, psych nurse, drug abuse social worker, electronic equipment installer, teacher, staff nuclear weapons officer, keycase assembler)? Give summary @ -[No] Was smoking cessation discussed for >3mins.? @ -[No] Was critical care preformed (if so, how long)? @ -[No] Were there social determinants of health that impacted care today? How? (Homelessness, low income, unemployed, alcoholism, drug addiction, transportation, low edu. Level, literacy, decrease access to med. care, long term, rehab)? @ -[No] Was there de-escalation of care discussed even if they declined (Discuss DNR or withdrawal of care, Hospice)? DNR status @ -[No] What co-morbidities impacted this encounter? (DM, HTN, Smoking, COPD, CAD, Cancer, CVA, ARF, Chemo, Hep., AIDS, mental health diagnosis, sleep apnea, morbid obesity)? @ -[None] Was patient admitted / discharged? Hospital course, mention meds given and route, prescriptions, significant lab abnormalities, going to OR and other pertinent info. @ -[Discharged Undiagnosed new problem with uncertain prognosis? @ -[No] Drug Therapy requiring intensive monitoring for toxicity (Heparin, Nitro, Insulin, Cardizem)? @ -[No] Were any procedures done? @ -[No] Diagnosis/symptom? @ -[Viral syndrome Acute, or Chronic, or Acute on Chronic? @ -[Acute Uncomplicated (without systemic symptoms) or Complicated (systemic symptoms)? @ -[Uncomplicated Side effects of treatment? @ -[No] Exacerbation, Progression, or Severe Exacerbation? @ -[No] Poses a threat to life or bodily function? How? (Chest pain, USA, PA, pneumonia, PE, COPD, DKA, ARF, appy, cholecystitis, CVA, Diverticulitis, Homicidal, Suicidal, threat to staff... and all critical care pts) @ -[No] (Maxi Pham) - Lab Data Lab Results 11/11/22 11/11/22 11/11/22 Range/Units 19:47 19:47 19:47 WBC 19.9 H (3.8-10.6) k/uL RBC 4.66 (4.30-5.90) m/uL Hgb 13.8 (13.0-17.5) gm/dL Hct 39.9 (39.0-53.0) % MCV 85.6 (80.0-100.0) fL MCH 29.6 (25.0-35.0) pg MCHC 34.5 (31.0-37.0) g/dL RDW 12.4 (11.5-15.5) % Plt Count 341 (150-450) k/uL MPV 7.4 Neutrophils % 85 % Lymphocytes % 8 % Monocytes % 6 % Eosinophils % 0 % Basophils % 0 % Neutrophils # 16.8 H (1.3-7.7) k/uL Lymphocytes # 1.7 (1.0-4.8) k/uL Monocytes # 1.2 H (0-1.0) k/uL Eosinophils # 0.0 (0-0.7) k/uL Basophils # 0.0 (0-0.2) k/uL Sodium 136 L (137-145) mmol/L Potassium 3.8 (3.5-5.1) mmol/L Chloride 100 (98-107) mmol/L Carbon Dioxide 24 (22-30) mmol/L Anion Gap 12 mmol/L BUN 11 (9-20) mg/dL Creatinine 0.88 (0.66-1.25) mg/dL Est GFR (CKD-EPI)AfAm >90 (>60 ml/min/1.73 sqM) Est GFR (CKD-EPI)NonAf >90 (>60 ml/min/1.73 sqM) Glucose 100 H (74-99) mg/dL Calcium 9.5 (8.4-10.2) mg/dL Total Bilirubin 1.7 H (0.2-1.3) mg/dL AST 18 (17-59) U/L ALT 16 (4-49) U/L Alkaline Phosphatase 88 (38-126) U/L Troponin I <0.012 (0.000-0.034) ng/mL Total Protein 7.2 (6.3-8.2) g/dL Albumin 4.4 (3.5-5.0) g/dL Heterophile Antibody (Negative) Influenza Type A (PCR) (Not Detectd) Influenza Type B (PCR) (Not Detectd) RSV (PCR) (Not Detectd) SARS-CoV-2 (PCR) (Not Detectd) Group A Strep (PCR) (Not Detectd) 11/11/22 11/11/22 11/11/22 Range/Units 19:47 19:47 19:47 WBC (3.8-10.6) k/uL RBC (4.30-5.90) m/uL Hgb (13.0-17.5) gm/dL Hct (39.0-53.0) % MCV (80.0-100.0) fL MCH (25.0-35.0) pg MCHC (31.0-37.0) g/dL RDW (11.5-15.5) % Plt Count (150-450) k/uL MPV Neutrophils % % Lymphocytes % % Monocytes % % Eosinophils % % Basophils % % Neutrophils # (1.3-7.7) k/uL Lymphocytes # (1.0-4.8) k/uL Monocytes # (0-1.0) k/uL Eosinophils # (0-0.7) k/uL Basophils # (0-0.2) k/uL Sodium (137-145) mmol/L Potassium (3.5-5.1) mmol/L Chloride (98-107) mmol/L Carbon Dioxide (22-30) mmol/L Anion Gap mmol/L BUN (9-20) mg/dL Creatinine (0.66-1.25) mg/dL Est GFR (CKD-EPI)AfAm (>60 ml/min/1.73 sqM) Est GFR (CKD-EPI)NonAf (>60 ml/min/1.73 sqM) Glucose (74-99) mg/dL Calcium (8.4-10.2) mg/dL Total Bilirubin (0.2-1.3) mg/dL AST (17-59) U/L ALT (4-49) U/L Alkaline Phosphatase (38-126) U/L Troponin I (0.000-0.034) ng/mL Total Protein (6.3-8.2) g/dL Albumin (3.5-5.0) g/dL Heterophile Antibody Negative (Negative) Influenza Type A (PCR) Not Detected (Not Detectd) Influenza Type B (PCR) Not Detected (Not Detectd) RSV (PCR) Not Detected (Not Detectd) SARS-CoV-2 (PCR) Not Detected (Not Detectd) Group A Strep (PCR) NOT DETECTED (Not Detectd) Disposition <Tatiana Llanes - Last Filed: 11/11/22 18:06> Is patient prescribed a controlled substance at d/c from ED?: No <Maxi Pham - Last Filed: 11/25/22 06:57> Clinical Impression: Viral syndrome Disposition: HOME SELF-CARE Condition: Good Instructions (If sedation given, give patient instructions): Viral Syndrome (ED) Referrals: Christaine Cooper MD [Primary Care Provider] - 1-2 days
--- NOTE | 2022-11-11 20:14 | XR ---
EXAMINATION TYPE: XR chest 2V DATE OF EXAM: 11/11/2022 COMPARISON: 10/27/2011 INDICATION: Chest pain TECHNIQUE: Frontal and lateral views of the chest are obtained. FINDINGS: The heart size is normal. The pulmonary vasculature is normal. The lungs are clear. IMPRESSION: 1. No acute pulmonary process.
[2022-11-11 20:26] LABS: Basophils % (A) 0 %; Eosinophils % (A) 0 %; HCT 39.9 % (39.0-53.0); HGB 13.8 gm/dL (13.0-17.5); Lymphocytes # (A) 1.7 k/uL (1.0-4.8); Lymphocytes % (A) 8 %; MCH 29.6 pg (25.0-35.0); MCHC 34.5 g/dL (31.0-37.0); MCV 85.6 fL (80.0-100.0); Mean Platelet Volume 7.4; Monocytes # (A) 1.2 k/uL (0-1.0); Monocytes % (A) 6 %; Neutrophils # (A) 16.8 k/uL (1.3-7.7); Neutrophils % (A) 85 %; Platelet Count 341 k/uL (150-450); RBC 4.66 m/uL (4.30-5.90); RDW 12.4 % (11.5-15.5); WBC 19.9 k/uL (3.8-10.6)
[2022-11-11 20:37] LABS: ALT 16 U/L (4-49); AST 18 U/L (17-59); African American GFR (CKD) >90 (>60 ml/min/1.73 sqM); Albumin 4.4 g/dL (3.5-5.0); Alkaline Phosphatase 88 U/L (38-126); Anion Gap 12 mmol/L; Blood Urea Nitrogen 11 mg/dL (9-20); Calcium 9.5 mg/dL (8.4-10.2); Carbon Dioxide 24 mmol/L (22-30); Chloride 100 mmol/L (98-107); Glucose 100 mg/dL (74-99); Non-African American GFR(CKD) >90 (>60 ml/min/1.73 sqM); Potassium 3.8 mmol/L (3.5-5.1); Sodium 136 mmol/L (137-145); Total Bilirubin 1.7 mg/dL (0.2-1.3); Total Protein 7.2 g/dL (6.3-8.2)
[2022-11-11 23:53] VITALS: BP 107/61; PULSE 74; RESP 16
== END 2022-11-11 23:51 | disposition home or self-care (01) ==
LOC: EC 15:03
DX: B34.9 Viral infection, unspecified (principal); F17.290 Nicotine dependence, other tobacco product, uncomplicated; F12.90 Cannabis use, unspecified, uncomplicated; Z20.822 Contact with and (suspected) exposure to COVID-19
CPT/HCPCS: 36415; 71046; 80053; 84484; 85025; 86308; 87636; 87651; 93005; 99285